=== PATIENT | female | born 1940 | race Caucasian/White ===

== ENCOUNTER → 2017-12-26 | Outpatient (CLI) | payer MEDICARE, BC ==
[~2017-12-26] MED LIST: ASPI81 PO; ATOR40TA49 PO; CALC600T34 PO; CARV6.252 PO; ESTR.1T TD; FAMO1TAB36 PO; FISH100020 PO; GLUC10TA3 PO; LEVEMIR SQ; LEVO75TA3 PO; MAGN250T5 PO; NUCY50TA9 PO; SPIR25TA PO; TAB-TAB PO; TIMO0.5S29 EACH EYE; ULTR50TA PO; VITA20002 PO; WAL-10TA2 PO
--- NOTE | 2017-12-28 08:54 | RSPPFT ---
DATE OF PROCEDURE: 12/26/17 COMMENTS: VOLUMES DYNAMIC: FVC and FEV1 normal. STATIC: FRC, RV and TLC normal. FLOWS: FEV1% mildly reduced; FEF 25-75 moderately reduced. DIFFUSION: Mildly reduced. FLOW VOLUME LOOP: Terminal airflow obstruction. IMPRESSION: Mild obstructive ventilatory defect with a mild reduction in diffusion and an increase in airways resistance. There is no significant improvement post-bronchodilator.
== END ==
LOC: HRSP 12:51
PROVIDERS: ATTEND Internal Medicine
DX: J44.9 Chronic obstructive pulmonary disease, unspecified (principal)
CPT/HCPCS: 94060; 94618; 94726; 94729